=== PATIENT | male | born 1960 | race Caucasian/White ===

== ENCOUNTER 2017-12-25 23:09 | Inpatient (IN) | payer OTHER ==
[2017-12-25] MEDS ORDERED: MORPHINE SULFATE 8 MG/ML INJ ONE (23:14)
[2017-12-25] MEDS ORDERED: ONDANSETRON HCL 4 MG/2 ML VIAL ONE (23:14)
[2017-12-25 23:20] VITALS: O2SAT 94
[2017-12-25] MEDS ORDERED: MORPHINE SULFATE 4 MG/ML INJ ONE (23:24)
[2017-12-25 23:31] LABS: AUTOMATED NEUTROPHIL # 4.2 TH/MM3 (1.8-7.7); BASOPHIL # 0.1 TH/MM3 (0-0.2); BASOPHIL % 0.8 % (0.0-2.0); EOSINOPHIL # 0.1 TH/MM3 (0-0.4); EOSINOPHIL % 1.3 % (0.0-4.0); HEMOGLOBIN 13.1 GM/DL (13.0-17.0); LYMPH % 33.1 % (9.0-44.0); LYMPHOCYTE # 2.5 TH/MM3 (1.0-4.8); MEAN CELL VOLUME 82.5 FL (80.0-100.0); MEAN CORPUSCULAR HEMOGLOBIN 28.4 PG (27.0-34.0); MEAN CORPUSCULAR HGB CONC 34.4 % (32.0-36.0); MEAN PLATELET VOLUME 9.1 FL (7.0-11.0); MONO % 7.8 % (0.0-8.0); MONOCYTE # 0.6 TH/MM3 (0-0.9); PLATELET COUNT 91 TH/MM3 (150-450); RED BLOOD COUNT 4.61 MIL/MM3 (4.50-5.90); RED CELL DISTRIBUTION WIDTH 14.5 % (11.6-17.2); WHITE BLOOD COUNT 7.4 TH/MM3 (4.0-11.0)
[2017-12-25 23:43] LABS: INTERNATIONAL NORMALIZED RATIO 1.1 RATIO; PROTHROMBIN TIME - PATIENT 11.4 SEC (9.8-11.6)
[2017-12-25 23:45] VITALS: O2SAT 98
[2017-12-25] MEDS ORDERED: IOHEXOL 350 MG/ML 10 ML VIAL (for RAD DIAG) IVCONTRAST ONE (23:45)
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
[2017-12-26] VITALS (13 sets, daily range): BP systolic 121–144; BP diastolic 64–82; PULSE 94–117; RESP 12–18; TEMP 97.6–98.6; O2SAT 95–100
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
[2017-12-26] MEDS ORDERED: LACTULOSE SYRUP 20 GM/30 ML CUP PO PRN (00:30)
[2017-12-26] MEDS ORDERED: CHLORHEXIDINE GLUCONATE 2 % 1 PACK (2 CLOTHS) TOP PRN (00:30)
[2017-12-26] MEDS ORDERED: ONDANSETRON HCL 4 MG/2 ML VIAL IV PUSH PRN ×2 (00:30→09:30)
[2017-12-26] MEDS ORDERED: MISCELLANEOUS NURSING INFORMATION XX SCH (00:30)
[2017-12-26] MEDS ORDERED: SENNOSIDES 8.6 MG TAB PO PRN (00:30)
[2017-12-26] MEDS ORDERED: ACETAMINOPHEN 1000 MG/100 ML 100 ML IV PRN (00:30)
[2017-12-26] MEDS ORDERED: MAGNESIUM HYDROXIDE SUSP 30 ML CUP PO PRN (00:30)
[2017-12-26] MEDS ORDERED: BISACODYL 10 MG SUPP RECTAL PRN (00:30)
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
[2017-12-26] MEDS ORDERED: HYDROmorphone HCL PF 2 MG/ML VIAL IV PRN (00:45)
[2017-12-26] MEDS ORDERED: LIDOCAINE 1%/EPINEPHrine 1:100,000 SOLN 50 ML VIAL INFIL ONE (01:15)
[2017-12-26] MEDS ORDERED: LIDOCAINE 1%/EPINEPHrine 1:100,000 SOLN 20 ML VIAL INFIL ONE ×3 (01:15)
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
[2017-12-26] MEDS: HYDROmorphone HCL PF 2 MG/ML VIAL IV PRN ×6 (02:46→22:54)
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
[2017-12-26] MEDS: SODIUM CHLOR 0.9% 1000 ML INJ 1,000 ML IV SCH ×2 (03:30→12:11)
[2017-12-26] MEDS: levETIRAcetam INJ 500 MG in SODIUM CHLORIDE 0.9% INJ 100 ML IV SCH ×2 (03:34→16:01)
[2017-12-26] MEDS: CHLORHEXIDINE GLUCONATE 2 % 1 PACK (2 CLOTHS) TOP SCH (04:00)
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
[2017-12-26] MEDS ORDERED: GLUCAGON 1 MG/ML VIAL OTHER PRN ×2 (08:45→09:15)
[2017-12-26] MEDS ORDERED: DEXTROSE 50% IN WATER 50 ML VIAL(D50) IV PUSH PRN (08:45)
[2017-12-26] MEDS ORDERED: DOCUSATE SODIUM 50 MG/SENNA 8.6 MG TAB PO SCH (09:00)
[2017-12-26] MEDS ORDERED: FAMOTIDINE 20 MG/2 ML VIAL IV PUSH SCH (09:00)
[2017-12-26] MEDS: FAMOTIDINE 20 MG TAB PO SCH ×2 (09:00→21:13)
--- NOTE | 2017-12-26 09:03 | HHI.CCPN ---
History - Height: Weight: 111.5 kg Allergies: Coded Allergies: No Allergy Information Available (Unverified , 12/26/17) Major 24 Hour Events Complaining of pain in bilateral lower extremities left greater than right. Imaging currently pending. Previously left hip/femur negative. Drips Drips None Vent Settings Respiratory Data On Venturi mask 3 L/26% IV Lines IV Lines Remarks Peripheral IV Exam Patient Data - Vital Signs Date Time Temp Pulse Resp B/P (MAP) Pulse Ox O2 Delivery O2 Flow Rate FiO2 12/26/17 07:50 95 Venturi Mask 3.00 26 12/26/17 06:00 111 12/26/17 04:00 117 12/26/17 03:37 95 Venturi Mask 5.00 26 12/26/17 02:00 97.6 117 16 129/82 (98) 96 12/26/17 02:00 116 12/25/17 23:45 98 Venturi Mask 28 12/25/17 23:20 94 Venturi Mask 50 12/25/17 23:20 94 50 Respiratory Respiratory effort: normal, other Chest appearance: Normal Ausculation: Left: Diminished throughout, Right: Normal, Bilateral: Wheezes Percussion: Bilateral: Normal Tactile fremitus: Cardiovascular Rhythm: regular Heart sounds: NORMAL: S1, S2 Abnormal heart sounds: No: Systolic murmur, Diastolic murmur, Rub, S3 gallop, S4 gallop, Click Gastrointestinal Abdomen description: Normal Bowel sounds: LUQ: Normal, LLQ: Normal, RUQ: Normal, RLQ: Normal Abdominal bruits: Left: None, Right: None, Central: None Skin Induration: Yes Hair: normal Nails: Normal Skin Remarks Multiple evolving abrasions bilateral upper and lower extremities Neurologic Cranial nerves: Normal: CN II: Optic, CN III: Oculomotor, CN IV: Trochlear, CN V: Trigeminal, CN : Abducent, CN VII: Facial, CN VIII: Acoustic, CN IX: Glossopharyngeal, CN X: Vagus, CN XI: Accessory, CN XII: Hypoglossal, Not tested : CN I: Olfactory Sensation: Normal: Light touch, Pinprick Results CBC/BMP: 12/25/17 2320 Imaging Report Remarks Last Impressions Thoracic Spine CT 12/25/177 Signed Impressions: Service Date/Time: Monday, December 25, 2017 23:37 - CONCLUSION: Intact thoracic spine. Jarrett Beebe MD Pelvis X-Ray 12/25/172316 Signed Impressions: Service Date/Time: Monday, December 25, 2017 23:17 - CONCLUSION: No evidence of pelvic fracture. Jarrett Beebe MD Maxillofacial CT 12/25/172316 Signed Impressions: Service Date/Time: Monday, December 25, 2017 23:31 - CONCLUSION: 1. Significantly comminuted nasal bone fractures with displaced fragments. 2. Nondisplaced fracture of the anterior left maxillary sinus. Jacob Marin MD Lumbar Spine CT 12/25/172316 Signed Impressions: Service Date/Time: Monday, December 25, 2017 23:37 - CONCLUSION: Intact lumbar spine. Jarrett Beebe MD Head CT 12/25/172316 Signed Impressions: Service Date/Time: Monday, December 25, 2017 23:31 - CONCLUSION: 1. Bilateral high convexity subarachnoid hemorrhage and possible small left subdural. 2. Bilateral nasal bone fractures and opacified left maxillary, ethmoid and right sphenoid sinus. Jacob Marin MD Chest X-Ray 12/25/172316 Signed Impressions: Service Date/Time: Monday, December 25, 2017 23:17 - CONCLUSION: Elevation of the left hemidiaphragm. No evidence of mediastinal shift. Jacob Marin MD Chest CT 12/25/172316 Signed Impressions: Service Date/Time: Monday, December 25, 2017 23:37 - CONCLUSION: 1. Ill-defined air space opacities in the central right lung could represent pulmonary edema or contusion. 2. Prior surgery medial lower left lung with elongated consolidation adjacent to the suture line. 3. No evidence of pneumothorax. Jacob Marin MD Cervical Spine CT 12/25/172316 Signed Impressions: Service Date/Time: Monday, December 25, 2017 23:31 - CONCLUSION: 1. No evidence of fracture or spondylolisthesis. 2. Prominent left parasagittal calcified osteophyte at the C6-7 level causing focal indentation on the thecal sac. Jacob Marin MD Abdomen/Pelvis CT 12/25/172316 Signed Impressions: Service Date/Time: Monday, December 25, 2017 23:37 - CONCLUSION: 1. Small left inguinal hernia. 2. The solid and hollow organs of the abdomen/pelvis are grossly intact. Jacob Marin MD Lower Extremity CT 12/25/17 0000 Signed Impressions: Service Date/Time: Monday, December 25, 2017 23:37 - CONCLUSION: Intact left hip. Jarrett Beebe MD Femur X-Ray 12/25/17 0000 Signed Impressions: Service Date/Time: Monday, December 25, 2017 23:17 - CONCLUSION: No fracture seen. Jacob Marin MD Assessment/Plan Assessment/Plan - Neuro/Psych: High convex bilateral subarachnoid hemorrhage Left subdural hematoma CT brain revealed high convexity right and hemorrhage bilaterally/left subdural hematoma Currently levetiracetam 500 mg IV twice daily Ofirmev 1 g IV every 6 hours as needed fever Hydromorphone 2.5-1 mg IV every 3 hours as needed pain Neurosurgery consultation Repeat CT brain 24 hours post admission or with neurological change Head of bed at 30 Neurochecks CV: Currently on normal saline at 84 cc an hour Not requiring vasopressors and/or antihypertensives. On enalaprilat 1.25 mg IV every 6 hours as needed as needed Resp: Right middle lung pulmonary contusion History of left lower lobe surgery Currently on Venturi mask at 3 L/26% mean saturations greater than equal to 92% Incentive spirometry while awake Albuterol/ipratropium aerosols every 6 hours with albuterol aerosols every 2 hours as needed for dyspnea CT thorax revealed left middle lung pulmonary contusion with left lower lobe sutures from prior surgery GI: Left inguinal hernia Currently n.p.o. for OR at 1900 hrs. 12/26 nasal fracture Famotidine 20 mg twice daily for GI prophylaxis Docusate sodium/senna 1 tablet twice daily for bowel regimen : Redman catheter for accurate I's and O's in a critically ill patient if indicated Endo: Diabetes mellitus Hyper glycemia Sliding scale insulin with Novulin R with Accu-Cheks before meals/at bedtime and O3 100 to maintain euglycemia/medium regimen Renal: Creatinine currently within normal limits Currently on LR at 100 cc an hour Monitor urine output Accurate I's and O's Heme: CBC with currently within normal limits Follow-up on coags ID: Monitor for infection MSK: Left/right nasal bone comminuted fracture with angulation and displacement Left lateral maxillary sinus wall fracture C6-7 osteophyte with impingement on thecal sac Schmorl's nodes T6 through T12 Thoracic facet/CV osteoarthritis Status post L4/S1 fusion/intact Left lateral malleolus fracture To OR @ [address] Patel 12/27 for fixation Orthopedics consultation. FEN: Replace electrolytes as clinically indicated Access -Utilize peripheral IV. Central line if indicated Prophylaxis -GI/famotidine -DVT -SCD/pharmacological prophylaxis contraindicated due to subarachnoid hemorrhage currently. Resume when okay with trauma/neurosurgery Time Spend with Patient Critical Care Minutes: 15 García Johnson MD Dec 26, 2017 09:03
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
[2017-12-26] MEDS ORDERED: DEXTROSE 50% IN WATER 50 ML SYRINGE IV PUSH PRN (09:15)
[2017-12-26] MEDS ORDERED: RESP: ALBUTEROL 2.5 MG/3 ML NEB (PRN) INH (09:30)
[2017-12-26] MEDS ORDERED: METF1000 PO (10:13)
[2017-12-26] MEDS ORDERED: LORA1TAB12 PO (10:13)
[2017-12-26] MEDS ORDERED: FLUO20CA12 PO (10:13)
[2017-12-26] MEDS ORDERED: GABA300C5 PO (10:13)
[2017-12-26] MEDS ORDERED: TRAZ50TA12 PO (10:13)
[2017-12-26] MEDS ORDERED: FLUT1INH7 INH (10:13)
[2017-12-26] MEDS: MULTIVITAMIN INJ 10 ML, THIAMINE INJ 100 MG, FOLIC ACID INJ 1 MG in SODIUM CHLORID 0.9%... IV SCH (11:16)
[2017-12-26] MEDS: RESP: ALBUTEROL 2.5 MG/IPRATROPIUM 0.5 MG NEB (SCH) INH ×4 (11:25→23:14)
[2017-12-26] MEDS ORDERED: LIDOCAINE HCL 1% PF 5 ML SYRINGE OTHER ONE (12:00)
[2017-12-26] MEDS ORDERED: PHENYLEPH/NS 1000 MCG/10 ML SYR IV ONE (12:00)
[2017-12-26] MEDS ORDERED: ONDANSETRON HCL 4 MG/2 ML VIAL IV ONE (12:00)
[2017-12-26] MEDS ORDERED: INSULIN NovoLIN REGULAR SUPPLEMENTAL SCALE SQ SCH (12:00)
[2017-12-26] MEDS ORDERED: PROPOFOL 200 MG/20 ML AMP IV ONE (12:00)
[2017-12-26] MEDS ORDERED: SUCCINYLCHOLINE CHLORIDE 200 MG/10 ML VIAL IV ONE (12:00)
[2017-12-26] MEDS ORDERED: DEXAMETHASONE SOD PHOS 4 MG/ML VIAL IV ONE (12:00)
[2017-12-26] MEDS: INSULIN ASPART SUPPLEMENTAL SCALE SQ SCH ×3 (12:00→23:34)
[2017-12-26] MEDS ORDERED: LIDOCAINE 1%/EPINEPHrine 1:100,000 SOLN 30 ML VIAL ONE (13:21)
[2017-12-26] MEDS ORDERED: LIDOCAINE 2%/EPINEPHrine PF 1:200,000 20ML SDV ONE (13:21)
[2017-12-26] MEDS ORDERED: ceFAZolin INJ 1,000 MG VIAL ONE (13:44)
[2017-12-26] MEDS ORDERED: BACITRACIN TOP OINT 15 GM TUBE ONE (14:07)
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
--- NOTE | 2017-12-26 14:29 | HHI.PR ---
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
[2017-12-26] MEDS ORDERED: DO NOT ADM ANY ANTICOAGULANT DRUGS PRN (15:00)
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
[2017-12-26] MEDS: GABAPENTIN 300 MG CAP PO SCH (19:17)
[2017-12-26] MEDS: DOCUSATE SODIUM 50 MG/SENNA 8.6 MG TAB PO SCH (21:00)
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
[2017-12-26] MEDS: traZODone HCL 50 MG TAB PO SCH (21:13)
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
[2017-12-27] VITALS (12 sets, daily range): BP systolic 108–164; BP diastolic 43–74; PULSE 70–100; RESP 7–18; TEMP 98.1–98.9; O2SAT 92–100
[2017-12-27] MEDS: SODIUM CHLOR 0.9% 1000 ML INJ 1,000 ML IV SCH ×3 (01:35→23:56)
[2017-12-27] MEDS: RESP: ALBUTEROL 2.5 MG/IPRATROPIUM 0.5 MG NEB (SCH) INH ×5 (03:34→20:08)
[2017-12-27] MEDS: levETIRAcetam INJ 500 MG in SODIUM CHLORIDE 0.9% INJ 100 ML IV SCH (03:38)
[2017-12-27] MEDS: CHLORHEXIDINE GLUCONATE 2 % 1 PACK (2 CLOTHS) TOP SCH (04:00)
[2017-12-27 04:21] LABS: AUTOMATED NEUTROPHIL # 6.4 TH/MM3 (1.8-7.7); BASOPHIL % 0.1 % (0.0-2.0); HEMATOCRIT 26.1 % (39.0-51.0); HEMOGLOBIN 8.8 GM/DL (13.0-17.0); LYMPH % 10.9 % (9.0-44.0); LYMPHOCYTE # 0.8 TH/MM3 (1.0-4.8); MEAN CELL VOLUME 82.9 FL (80.0-100.0); MEAN CORPUSCULAR HEMOGLOBIN 28.1 PG (27.0-34.0); MEAN CORPUSCULAR HGB CONC 33.9 % (32.0-36.0); MEAN PLATELET VOLUME 8.6 FL (7.0-11.0); MONO % 5.8 % (0.0-8.0); MONOCYTE # 0.4 TH/MM3 (0-0.9); NEUT % 83.2 % (16.0-70.0); PLATELET COUNT 80 TH/MM3 (150-450); RED BLOOD COUNT 3.14 MIL/MM3 (4.50-5.90); RED CELL DISTRIBUTION WIDTH 14.8 % (11.6-17.2); WHITE BLOOD COUNT 7.7 TH/MM3 (4.0-11.0)
[2017-12-27 04:38] LABS: ALBUMIN 2.4 GM/DL (3.4-5.0); BICARBONATE 26.8 MEQ/L (21.0-32.0); CALCIUM 7.2 MG/DL (8.5-10.1); CALCIUM-PROTEIN CORRECTED 8.1 MG/DL (8.5-10.1); CREATININE 0.66 MG/DL (0.60-1.30); TOTAL BILIRUBIN ADULT 0.7 MG/DL (0.2-1.0); TOTAL PROTEIN 5.4 GM/DL (6.4-8.2)
[2017-12-27] MEDS: INSULIN ASPART SUPPLEMENTAL SCALE SQ SCH ×4 (06:00→23:57)
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
[2017-12-27] MEDS: HYDROmorphone HCL PF 2 MG/ML VIAL IV PRN ×5 (06:34→19:46)
[2017-12-27] MEDS: GABAPENTIN 300 MG CAP PO SCH ×3 (09:00→19:47)
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
[2017-12-27] MEDS: FLUTICASONE 200 MCG/VILANTEROL 25 MCG INHALER INH SCH (12:00)
[2017-12-27] MEDS ORDERED: PROPOFOL 200 MG/20 ML AMP IV ONE (12:00)
[2017-12-27] MEDS ORDERED: ONDANSETRON HCL 4 MG/2 ML VIAL IV ONE (12:00)
[2017-12-27] MEDS ORDERED: LIDOCAINE HCL 1% PF 5 ML SYRINGE OTHER ONE (12:00)
[2017-12-27] MEDS ORDERED: DEXAMETHASONE SOD PHOS 4 MG/ML VIAL IV ONE (12:00)
[2017-12-27] MEDS: DOCUSATE SODIUM 50 MG/SENNA 8.6 MG TAB PO SCH ×2 (12:01→19:47)
[2017-12-27] MEDS: FAMOTIDINE 20 MG TAB PO SCH ×2 (12:02→19:46)
[2017-12-27] MEDS: FLUoxetine HCL 20 MG CAP PO SCH (12:02)
[2017-12-27] MEDS: levETIRAcetam 500 MG TAB PO SCH ×2 (12:02→19:46)
[2017-12-27] MEDS: MULTIVITAMIN INJ 10 ML, THIAMINE INJ 100 MG, FOLIC ACID INJ 1 MG in SODIUM CHLORID 0.9%... IV SCH (12:23)
[2017-12-27] MEDS ORDERED: GENTAMICIN SULFATE 80 MG/2 ML VIAL ONE (16:48)
[2017-12-27] MEDS ORDERED: VANCOMYCIN HCL 1000 MG VIAL ONE (16:48)
[2017-12-27] MEDS ORDERED: ceFAZolin INJ 1,000 MG VIAL ONE (16:48)
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
[2017-12-27] MEDS ORDERED: Post-op Orders (for Pharmacy) XX ONE (18:30)
[2017-12-27] MEDS ORDERED: SODIUM CHLORIDE 0.9% FLUSH 10 ML FLUSH IV FLUSH PRN (18:30)
[2017-12-27] MEDS ORDERED: DO NOT ADM ANY ANTICOAGULANT DRUGS PRN ×2 (19:00)
[2017-12-27] MEDS: traZODone HCL 50 MG TAB PO SCH (19:47)
[2017-12-27] MEDS: SODIUM CHLORIDE 0.9% FLUSH 10 ML FLUSH IV FLUSH SCH (19:47)
--- NOTE | 2017-12-27 20:54 | RADRPT ---
EXAM DATE/TIME: 12/27/2017 16:37 [facility] COMPARISON: No previous studies available for comparison. INDICATIONS : ORIF of the left ankle. MEDICAL HISTORY : Hypertension. Diabetes mellitus type II. SURGICAL HISTORY : Lateral ORIF of the left ankle. ENCOUNTER: Subsequent ACUITY: 2 days PAIN SCORE: Non-responsive. LOCATION: Left ankle. FINDINGS: 2 images are recorded digitally in the operating room using C-arm during placement of lateral fibular plate, medial fibular plate, longer oblique screw in the medial malleolus and distal fibular screw. CONCLUSION: Intraoperative images. Jacob Marin MD on December 27, 2017 at 20:51 Board Certified Radiologist. This report was verified electronically.
--- NOTE | 2017-12-27 20:58 | RADRPT ---
EXAM DATE/TIME: 12/27/2017 16:37 [facility] COMPARISON: No previous studies available for comparison. INDICATIONS : Evaluate for fracture. MEDICAL HISTORY : Hypertension. Diabetes mellitus type II. SURGICAL HISTORY : None. ENCOUNTER: Subsequent ACUITY: 2 days PAIN SCORE: Non-responsive. LOCATION: Left foot. FINDINGS: 3 images are recorded digitally in the operating room using C-arm. Multiple metallic densities super imposed upon the 2nd and 3rd MTP joints and the cortical margins of the 2nd digit distal metatarsal h ead and proximal phalanx of the 2nd and are poorly delineated. CONCLUSION: Intraoperative images. Jacob Marin MD on December 27, 2017 at 20:55 Board Certified Radiologist. This report was verified electronically.
--- NOTE | 2017-12-27 20:59 | RADRPT ---
EXAM DATE/TIME: 12/27/2017 16:37 [facility] COMPARISON: No previous studies available for comparison. INDICATIONS : Evaluate for fracture. MEDICAL HISTORY : Hypertension. Diabetes mellitus type II. SURGICAL HISTORY : None. ENCOUNTER: Subsequent ACUITY: 2 days PAIN SCORE: Non-responsive. LOCATION: Right foot. FINDINGS: 4 images are recorded digitally in the operating room using C-arm. Fractures of the 5th digit distal and proximal phalanx and proximal metaphysis of the 5th metatarsus are seen. CONCLUSION: Intraoperative images. Jacob Marin MD on December 27, 2017 at 20:56 Board Certified Radiologist. This report was verified electronically.
[2017-12-27] MEDS: oxyCODONE/ACETAMINOPHEN 5 MG/325 MG TAB PO PRN (23:18)
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
[2017-12-28] VITALS (11 sets, daily range): BP systolic 135–158; BP diastolic 64–84; PULSE 53–86; RESP 12–20; TEMP 97.6–98.3; O2SAT 93–100
[2017-12-28] MEDS: RESP: ALBUTEROL 2.5 MG/IPRATROPIUM 0.5 MG NEB (SCH) INH ×6 (00:55→23:56)
[2017-12-28] MEDS: oxyCODONE/ACETAMINOPHEN 5 MG/325 MG TAB PO PRN (03:19)
[2017-12-28] MEDS: HYDROmorphone HCL PF 2 MG/ML VIAL IV PRN ×4 (03:27→17:15)
[2017-12-28] MEDS ORDERED: HALOPERIDOL LACTATE 5 MG/ML AMP IV ONE (03:45)
[2017-12-28] MEDS: CHLORHEXIDINE GLUCONATE 2 % 1 PACK (2 CLOTHS) TOP SCH ×2 (04:00→23:48)
[2017-12-28 04:53] LABS: AUTOMATED NEUTROPHIL # 4.3 TH/MM3 (1.8-7.7); BASOPHIL % 0.3 % (0.0-2.0); HEMATOCRIT 24.1 % (39.0-51.0); HEMOGLOBIN 8.3 GM/DL (13.0-17.0); LYMPH % 13.3 % (9.0-44.0); LYMPHOCYTE # 0.7 TH/MM3 (1.0-4.8); MEAN CELL VOLUME 84.5 FL (80.0-100.0); MEAN CORPUSCULAR HEMOGLOBIN 29.1 PG (27.0-34.0); MEAN CORPUSCULAR HGB CONC 34.4 % (32.0-36.0); MEAN PLATELET VOLUME 9.2 FL (7.0-11.0); MONO % 7.4 % (0.0-8.0); MONOCYTE # 0.4 TH/MM3 (0-0.9); PLATELET COUNT 70 TH/MM3 (150-450); RED BLOOD COUNT 2.85 MIL/MM3 (4.50-5.90); RED CELL DISTRIBUTION WIDTH 14.9 % (11.6-17.2); WHITE BLOOD COUNT 5.4 TH/MM3 (4.0-11.0)
[2017-12-28 05:24] LABS: ALBUMIN 2.4 GM/DL (3.4-5.0); BICARBONATE 27.9 MEQ/L (21.0-32.0); CALCIUM 7.3 MG/DL (8.5-10.1); CALCIUM-PROTEIN CORRECTED 8.2 MG/DL (8.5-10.1); CREATININE 0.64 MG/DL (0.60-1.30); TOTAL BILIRUBIN ADULT 0.6 MG/DL (0.2-1.0); TOTAL PROTEIN 5.4 GM/DL (6.4-8.2)
[2017-12-28] MEDS: INSULIN ASPART SUPPLEMENTAL SCALE SQ SCH ×4 (06:21→23:47)
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
[2017-12-28] MEDS: FLUTICASONE 200 MCG/VILANTEROL 25 MCG INHALER INH SCH (09:00)
[2017-12-28] MEDS: LACTULOSE SYRUP 20 GM/30 ML CUP PO SCH (09:00)
[2017-12-28] MEDS: MAGNESIUM HYDROXIDE SUSP 30 ML CUP PO SCH ×2 (09:00→21:22)
[2017-12-28] MEDS: levETIRAcetam 500 MG TAB PO SCH ×2 (09:08→21:23)
[2017-12-28] MEDS: SODIUM CHLORIDE 0.9% FLUSH 10 ML FLUSH IV FLUSH SCH ×2 (09:09→21:26)
[2017-12-28] MEDS: FAMOTIDINE 20 MG TAB PO SCH ×2 (09:09→21:23)
[2017-12-28] MEDS: DOCUSATE SODIUM 50 MG/SENNA 8.6 MG TAB PO SCH ×2 (09:09→21:48)
[2017-12-28] MEDS: FLUoxetine HCL 20 MG CAP PO SCH (09:09)
[2017-12-28] MEDS: GABAPENTIN 300 MG CAP PO SCH ×3 (09:09→17:08)
[2017-12-28 09:30] LABS: BANDS 6 % (0-6); LYMPHOCYTES 19 % (9-44); MONOCYTES 1 % (0-8); MYELOCYTES 2 % (0-0); NEUTROPHIL # MANUAL DIFF 4.3 TH/MM3 (1.8-7.7); POLYS (SEG NEUTROPHILS) 72 % (16-70)
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
[2017-12-28] MEDS ORDERED: HALOPERIDOL LACTATE 5 MG/ML AMP IM PRN (10:30)
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
[2017-12-28] MEDS: MULTIVITAMIN INJ 10 ML, THIAMINE INJ 100 MG, FOLIC ACID INJ 1 MG in SODIUM CHLORID 0.9%... IV SCH (12:09)
[2017-12-28] MEDS: VALPROIC ACID 250 MG CAP PO SCH ×2 (12:58→21:25)
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
[2017-12-28] MEDS: oxyCODONE/ACETAMINOPHEN 7.5 MG/325 MG TAB PO PRN ×2 (16:19→21:48)
--- NOTE | 2017-12-28 18:14 | EKG ---
Date Performed: 12/27/2017 Time Performed: 16:11:35 PTAGE: 57 years EKG: Sinus rhythm NORMAL ECG NO PREVIOUS TRACING DOCTOR: Marina Mcnulty Interpretating Date/Time 12/28/2017 18:12:01
[2017-12-28] MEDS: traZODone HCL 50 MG TAB PO SCH (21:23)
[2017-12-28] MEDS: SODIUM CHLOR 0.9% 1000 ML INJ 1,000 ML IV SCH (23:14)
[2017-12-29] VITALS (8 sets, daily range): BP systolic 113–192; BP diastolic 66–89; PULSE 78–93; RESP 19–20; TEMP 97.6–98; O2SAT 92–99
[2017-12-29] MEDS: HYDROmorphone HCL PF 2 MG/ML VIAL IV PRN ×3 (00:13→16:28)
[2017-12-29] MEDS: RESP: ALBUTEROL 2.5 MG/IPRATROPIUM 0.5 MG NEB (SCH) INH ×6 (02:39→23:47)
[2017-12-29 03:58] LABS: AUTOMATED NEUTROPHIL # 2.8 TH/MM3 (1.8-7.7); BASOPHIL % 0.3 % (0.0-2.0); EOSINOPHIL % 0.7 % (0.0-4.0); HEMATOCRIT 24.3 % (39.0-51.0); HEMOGLOBIN 8.2 GM/DL (13.0-17.0); LYMPH % 27.6 % (9.0-44.0); LYMPHOCYTE # 1.2 TH/MM3 (1.0-4.8); MEAN CELL VOLUME 84.9 FL (80.0-100.0); MEAN CORPUSCULAR HEMOGLOBIN 28.6 PG (27.0-34.0); MEAN CORPUSCULAR HGB CONC 33.7 % (32.0-36.0); MEAN PLATELET VOLUME 8.3 FL (7.0-11.0); MONO % 8.6 % (0.0-8.0); MONOCYTE # 0.4 TH/MM3 (0-0.9); NEUT % 62.8 % (16.0-70.0); PLATELET COUNT 84 TH/MM3 (150-450); RED BLOOD COUNT 2.86 MIL/MM3 (4.50-5.90); RED CELL DISTRIBUTION WIDTH 14.8 % (11.6-17.2); WHITE BLOOD COUNT 4.5 TH/MM3 (4.0-11.0)
[2017-12-29 04:20] LABS: ALBUMIN 2.2 GM/DL (3.4-5.0); AST (GOT) 136 U/L (15-37); BICARBONATE 30.5 MEQ/L (21.0-32.0); BLOOD UREA NITROGEN 19 MG/DL (7-18); CALCIUM 7.8 MG/DL (8.5-10.1); CHLORIDE 103 MEQ/L (98-107); GLOMERULAR FILTRATION RATE 100 ML/MIN (>89); GLUCOSE,RANDOM 203 MG/DL (74-106); SODIUM (NA) 140 MEQ/L (136-145)
[2017-12-29 04:21] LABS: ALT (GPT) 107 U/L (12-78)
[2017-12-29 04:23] LABS: ALKALINE PHOSPHATASE 85 U/L (45-117); TOTAL BILIRUBIN ADULT 0.4 MG/DL (0.2-1.0); TOTAL PROTEIN 5.1 GM/DL (6.4-8.2)
[2017-12-29] MEDS: oxyCODONE/ACETAMINOPHEN 7.5 MG/325 MG TAB PO PRN ×3 (05:30→23:00)
[2017-12-29] MEDS: INSULIN ASPART SUPPLEMENTAL SCALE SQ SCH ×3 (05:31→18:23)
[2017-12-29] MEDS ORDERED: LEVE500 PO (07:11)
[2017-12-29] MEDS ORDERED: MAGN30S PO (07:11)
[2017-12-29] MEDS ORDERED: PERI PO (07:11)
[2017-12-29] MEDS ORDERED: BISACODYL 10 MG SUPP RECTAL ONE (07:15)
[2017-12-29] MEDS ORDERED: BISACODYL EC 5 MG TABEC PO ONE (07:15)
[2017-12-29] MEDS: MAGNESIUM HYDROXIDE SUSP 30 ML CUP PO SCH ×2 (07:42→21:06)
[2017-12-29] MEDS: LACTULOSE SYRUP 20 GM/30 ML CUP PO SCH (07:42)
[2017-12-29] MEDS: GABAPENTIN 300 MG CAP PO SCH ×3 (07:43→18:21)
[2017-12-29] MEDS: VALPROIC ACID 250 MG CAP PO SCH ×2 (07:43→21:18)
[2017-12-29] MEDS: FAMOTIDINE 20 MG TAB PO SCH ×2 (07:43→21:07)
[2017-12-29] MEDS: FLUoxetine HCL 20 MG CAP PO SCH (07:43)
[2017-12-29] MEDS: SODIUM CHLORIDE 0.9% FLUSH 10 ML FLUSH IV FLUSH SCH ×2 (07:43→21:00)
[2017-12-29] MEDS: DOCUSATE SODIUM 50 MG/SENNA 8.6 MG TAB PO SCH ×2 (07:43→21:07)
[2017-12-29] MEDS: levETIRAcetam 500 MG TAB PO SCH ×2 (07:43→21:07)
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
[2017-12-29] MEDS: MULTIVITAMIN INJ 10 ML, THIAMINE INJ 100 MG, FOLIC ACID INJ 1 MG in SODIUM CHLORID 0.9%... IV SCH (09:22)
[2017-12-29] MEDS: FLUTICASONE 200 MCG/VILANTEROL 25 MCG INHALER INH SCH (09:23)
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
[2017-12-29] MEDS ORDERED: BUPIVACAINE HCL PF 0.25% 30 ML VIAL ONE (10:52)
[2017-12-29] MEDS ORDERED: GENTAMICIN SULFATE 80 MG/2 ML VIAL ONE (10:52)
[2017-12-29] MEDS: SODIUM CHLOR 0.9% 1000 ML INJ 1,000 ML IV SCH ×2 (11:41→23:01)
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
[2017-12-29] MEDS ORDERED: KETAMINE HCL 500 MG/10 ML VIAL ONE (11:56)
[2017-12-29] MEDS ORDERED: ceFAZolin INJ 1,000 MG VIAL IV ONE ×2 (12:00→13:22)
[2017-12-29] MEDS ORDERED: ONDANSETRON HCL 4 MG/2 ML VIAL IV ONE (12:00)
[2017-12-29] MEDS ORDERED: KETAMINE HCL 10 MG/5 ML SYRINGE IV PUSH ONE (12:00)
[2017-12-29] MEDS ORDERED: PROPOFOL 200 MG/20 ML AMP IV ONE (12:00)
[2017-12-29] MEDS ORDERED: DEXAMETHASONE SOD PHOS 4 MG/ML VIAL IV ONE (12:00)
[2017-12-29] MEDS ORDERED: LIDOCAINE HCL 1% PF 5 ML SYRINGE OTHER ONE (12:00)
[2017-12-29] MEDS ORDERED: PROPOFOL 500 MG/50 ML INJ 50 ML ONE (13:51)
--- NOTE | 2017-12-29 14:20 | HHI.PR ---
Immediate Post Op Note Procedure Date: Dec 29, 2017 Pre Op Diagnosis: (1) Toe fracture (2) Fracture of 5th metatarsal Post Op Diagnosis: Surgeon: Garret Ravi Cokeman(s): scrub Procedure: ORIF Left 5th metatarsal fracture and 5th digit PIPJ Estimated blood loss: less than 10mL Anesthesia: MAC Drains: None Tourniquet time (min at mmHg) 50 min 250 mmhg right ankle Patient to: Other Patient Condition: Good Implant/Devices: SEE IMPLANT LOG (if applicable) Date/Time of Procedure: SEE SURGICAL CARE RECORD Garret Ravi DPM Dec 29, 2017 14:20
[2017-12-29] MEDS ORDERED: DO NOT ADM ANY ANTICOAGULANT DRUGS PRN (14:23)
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
[2017-12-29] MEDS: ENALAPRILAT 1.25 MG/ML VIAL IV PUSH PRN (21:03)
[2017-12-29] MEDS: traZODone HCL 50 MG TAB PO SCH (21:07)
[2017-12-30] VITALS (8 sets, daily range): BP systolic 69–178; BP diastolic 67–80; PULSE 70–90; RESP 18–20; TEMP 97.3–98.4; O2SAT 95–99
[2017-12-30] MEDS: INSULIN ASPART SUPPLEMENTAL SCALE SQ SCH ×4 (01:12→18:06)
[2017-12-30] MEDS: RESP: ALBUTEROL 2.5 MG/IPRATROPIUM 0.5 MG NEB (SCH) INH ×3 (03:10→11:52)
[2017-12-30] MEDS: CHLORHEXIDINE GLUCONATE 2 % 1 PACK (2 CLOTHS) TOP SCH (03:39)
[2017-12-30] MEDS: oxyCODONE/ACETAMINOPHEN 7.5 MG/325 MG TAB PO PRN ×3 (05:16→20:51)
[2017-12-30] MEDS: MULTIVITAMIN INJ 10 ML, THIAMINE INJ 100 MG, FOLIC ACID INJ 1 MG in SODIUM CHLORID 0.9%... IV SCH (08:01)
[2017-12-30] MEDS: FLUoxetine HCL 20 MG CAP PO SCH (08:02)
[2017-12-30] MEDS: GABAPENTIN 300 MG CAP PO SCH ×3 (08:02→18:07)
[2017-12-30] MEDS: levETIRAcetam 500 MG TAB PO SCH ×2 (08:02→20:36)
[2017-12-30] MEDS: VALPROIC ACID 250 MG CAP PO SCH ×2 (08:02→20:36)
[2017-12-30] MEDS: FAMOTIDINE 20 MG TAB PO SCH ×2 (08:02→20:36)
[2017-12-30] MEDS: FLUTICASONE 200 MCG/VILANTEROL 25 MCG INHALER INH SCH (08:03)
[2017-12-30] MEDS: DOCUSATE SODIUM 50 MG/SENNA 8.6 MG TAB PO SCH ×2 (08:07→21:00)
[2017-12-30] MEDS: MAGNESIUM HYDROXIDE SUSP 30 ML CUP PO SCH ×2 (08:07→21:00)
[2017-12-30] MEDS: SODIUM CHLORIDE 0.9% FLUSH 10 ML FLUSH IV FLUSH SCH ×2 (08:07→21:00)
[2017-12-30] MEDS: LACTULOSE SYRUP 20 GM/30 ML CUP PO SCH (08:07)
[2017-12-30] MEDS: SODIUM CHLOR 0.9% 1000 ML INJ 1,000 ML IV SCH (08:17)
[2017-12-30 10:49] LABS: AUTOMATED NEUTROPHIL # 3.7 TH/MM3 (1.8-7.7); BASOPHIL % 0.2 % (0.0-2.0); EOSINOPHIL % 0.4 % (0.0-4.0); HEMOGLOBIN 8.4 GM/DL (13.0-17.0); LYMPHOCYTE # 1.2 TH/MM3 (1.0-4.8); MEAN CELL VOLUME 84.8 FL (80.0-100.0); MEAN CORPUSCULAR HEMOGLOBIN 28.6 PG (27.0-34.0); MEAN CORPUSCULAR HGB CONC 33.7 % (32.0-36.0); MONO % 10.1 % (0.0-8.0); MONOCYTE # 0.6 TH/MM3 (0-0.9); NEUT % 67.3 % (16.0-70.0); PLATELET COUNT 110 TH/MM3 (150-450); RED BLOOD COUNT 2.95 MIL/MM3 (4.50-5.90); RED CELL DISTRIBUTION WIDTH 14.9 % (11.6-17.2); WHITE BLOOD COUNT 5.5 TH/MM3 (4.0-11.0)
[2017-12-30 11:18] LABS: BICARBONATE 29.6 MEQ/L (21.0-32.0); CALCIUM 7.6 MG/DL (8.5-10.1); CREATININE 0.73 MG/DL (0.60-1.30)
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
--- NOTE | 2017-12-30 12:24 | RADRPT ---
EXAM DATE/TIME: 12/29/2017 12:57 [facility] COMPARISON: FOOT RIGHT LIMITED (2VWS), December 27, 2017, 16:37. INDICATIONS : Right foot, 5th digit open reduction internal fixation. MEDICAL HISTORY : Hypertension. Diabetes mellitus type II. SURGICAL HISTORY : Lateral ORIF of the left ankle. ENCOUNTER: Initial ACUITY: 1 day PAIN SCORE: Non-responsive. LOCATION: Right foot FINDINGS: 2 images recorded digitally the operating room using C-arm during internal and external fixation of t he fifth digit. CONCLUSION: Intraoperative images. Jacob Marin MD on December 30, 2017 at 12:22 Board Certified Radiologist. This report was verified electronically.
[2017-12-30] MEDS ORDERED: OXYC1TAB63 PO (14:27)
[2017-12-30] MEDS ORDERED: WALKER WHEELS/F1 MIS (14:32)
--- NOTE | 2017-12-30 17:20 | PD.POD ---
Subjective Pain score: 2 Remarks Entered room patient's sleeping, however, forgot he had surgery on his right foot, he said his mind is foggy Past Med/Surg/Social History Social History Smoking Status: Current Every Day Smoker Objective Vital Signs Vital Signs Date Time Temp Pulse Resp B/P (MAP) Pulse Ox O2 Delivery O2 Flow Rate FiO2 12/30/17 16:02 97.5 76 20 152/70 (97) 98 12/30/17 11:28 97.6 74 20 165/80 (108) 98 12/30/17 07:43 99 21 12/30/17 07:40 97.3 70 20 131/67 (88) 95 12/30/17 04:00 97.9 74 18 69/ 97 12/30/17 00:00 98.4 90 19 138/75 (96) 95 12/29/17 20:00 97.7 93 19 192/88 (122) 99 Coded Allergies: No Known Allergies (Unverified , 12/27/17) Physical Exam Remarks Right lower extremity cam walking boot intact pin intact to digits good range of motion of digits good capillary fill time to digits calf nontender nondistended appears to be no strikethrough bandage Left lower extremity posterior splint intact able to move toes Assessment & Plan A/P Right fifth metatarsal fracture, right fifth digit PIPJ fracture dislocation Status post ORIF right fifth metatarsal and right fifth digit PIPJ fracture dislocation. Requesting physical therapy to evaluate if the patient can navigate 3 steps with nonweightbearing of left foot and ankle and only heel weight-bear of the right foot with controlled ankle motion boot. If the patient can navigate the above he is cleared to discharge regarding his right lower extremity injuries home per podiatry. No wound care needed follow- up in clinic 1 week. Garret Bradley DPM Dec 30, 2017 17:20
[2017-12-30] MEDS: traZODone HCL 50 MG TAB PO SCH (20:36)
[2017-12-31] VITALS: BP 171/81; PULSE 73; RESP 18; TEMP 97.5; O2SAT 95
[2017-12-31] MEDS: SODIUM CHLOR 0.9% 1000 ML INJ 1,000 ML IV SCH (00:02)
[2017-12-31] MEDS: ENALAPRILAT 1.25 MG/ML VIAL IV PUSH PRN (02:32)
[2017-12-31 04:00] VITALS: BP 158/76; PULSE 67; RESP 18; TEMP 97.4; O2SAT 95
[2017-12-31] MEDS: oxyCODONE/ACETAMINOPHEN 7.5 MG/325 MG TAB PO PRN ×2 (04:04→13:39)
[2017-12-31 04:51] LABS: HEMATOCRIT 26.2 % (39.0-51.0); HEMOGLOBIN 8.9 GM/DL (13.0-17.0)
[2017-12-31] MEDS: INSULIN ASPART SUPPLEMENTAL SCALE SQ SCH ×3 (05:49→12:34)
[2017-12-31 08:00] VITALS: BP 177/85; PULSE 76; RESP 18; TEMP 97.9; O2SAT 92
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
[2017-12-31 09:00] VITALS: O2SAT 95
[2017-12-31] MEDS: MAGNESIUM HYDROXIDE SUSP 30 ML CUP PO SCH ×2 (09:00→09:37)
[2017-12-31] MEDS: LACTULOSE SYRUP 20 GM/30 ML CUP PO SCH ×2 (09:00→09:37)
[2017-12-31] MEDS: SODIUM CHLORIDE 0.9% FLUSH 10 ML FLUSH IV FLUSH SCH (09:00)
[2017-12-31] MEDS: DOCUSATE SODIUM 50 MG/SENNA 8.6 MG TAB PO SCH (09:38)
[2017-12-31] MEDS: FAMOTIDINE 20 MG TAB PO SCH (09:38)
[2017-12-31] MEDS: VALPROIC ACID 250 MG CAP PO SCH (09:38)
[2017-12-31] MEDS: GABAPENTIN 300 MG CAP PO SCH ×2 (09:38→12:33)
[2017-12-31] MEDS: FLUoxetine HCL 20 MG CAP PO SCH (09:38)
[2017-12-31] MEDS: FLUTICASONE 200 MCG/VILANTEROL 25 MCG INHALER INH SCH (09:39)
[2017-12-31] MEDS: levETIRAcetam 500 MG TAB PO SCH (09:39)
[2017-12-31] MEDS: MULTIVITAMIN INJ 10 ML, THIAMINE INJ 100 MG, FOLIC ACID INJ 1 MG in SODIUM CHLORID 0.9%... IV SCH (09:39)
[2017-12-31 12:00] VITALS: BP 192/92; PULSE 76; RESP 18; TEMP 98; O2SAT 98
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
== END 2017-12-31 14:53 | disposition home health service (06) | DRG 958 ==
LOC: NEPI 23:09 → EDBD 12-26 00:06 → NEDA 12-26 00:06 → N03B 12-26 02:08 → N05B 12-28 16:08
PROVIDERS: ADMIT Surgery Trauma Surgery; ATTEND Surgery Trauma Surgery
PROC: 0HQ1XZZ Repair Face Skin, External Approach (ICD-10-PCS; 2017-12-26)
PROC: 09QKXZZ Repair Nasal Mucosa and Soft Tissue, External Approach (ICD-10-PCS; 2017-12-26)
PROC: 0NSBXZZ Reposition Nasal Bone, External Approach (ICD-10-PCS; 2017-12-26)
PROC: 0QSH04Z Reposition Left Tibia with Internal Fixation Device, Open Approach (ICD-10-PCS; principal; 2017-12-27 16:15)
PROC: 0QSN04Z Reposition Right Metatarsal with Internal Fixation Device, Open Approach (ICD-10-PCS; 2017-12-29)
PROC: 0QSQ04Z Reposition Right Toe Phalanx with Internal Fixation Device, Open Approach (ICD-10-PCS; 2017-12-29)
DX: S06.6X9A Traumatic subarachnoid hemorrhage with loss of consciousness of unspecified duration, initial encounter (principal); S27.329A Contusion of lung, unspecified, initial encounter; F02.81 Dementia in other diseases classified elsewhere, unspecified severity, with behavioral disturbance; D69.6 Thrombocytopenia, unspecified; S02.40DA Maxillary fracture, left side, initial encounter for closed fracture; S01.111A Laceration without foreign body of right eyelid and periocular area, initial encounter; I10 Essential (primary) hypertension; S01.21XA Laceration without foreign body of nose, initial encounter; S02.2XXA Fracture of nasal bones, initial encounter for closed fracture; S06.5X9A Traumatic subdural hemorrhage with loss of consciousness of unspecified duration, initial encounter; S82.52XA Displaced fracture of medial malleolus of left tibia, initial encounter for closed fracture; S92.511A Displaced fracture of proximal phalanx of right lesser toe(s), initial encounter for closed fracture; E11.9 Type 2 diabetes mellitus without complications; S92.351A Displaced fracture of fifth metatarsal bone, right foot, initial encounter for closed fracture; F17.210 Nicotine dependence, cigarettes, uncomplicated; K40.90 Unilateral inguinal hernia, without obstruction or gangrene, not specified as recurrent; V23.4XXA Motorcycle driver injured in collision with car, pick-up truck or van in traffic accident, initial encounter; Y92.410 Unspecified street and highway as the place of occurrence of the external cause
CPT/HCPCS: 12011; 70450; 70486; 71045; 71260; 72125; 72129; 72132; 72170; 73551; 73590; 73600; 73620; 73630; 73700; 74177; 76000; 80048; 80053; 80307; 82948; 85007; 85014; 85018; 85025; 85027; 85610; 85730; 86850; 86900; 86901; 87641; 90471; 93005; 94150; 94640; 94664; 96374; 96375; C1713; C1769; J0330; J0690; J1100; J1170; J1580; J1630; J1815; J1953; J2270; J2370; J2405; J3010; J3370; J3411; J7030; J7040; L2114; Q9967